=== PATIENT | male | born 1950 | race Caucasian/White ===

== ENCOUNTER 2022-03-12 12:34 | Outpatient (CLI) | payer OTHER, MEDICARE, SELFPAY | END 2022-03-12 12:35 | disposition home or self-care (01) | LOC: AMB 04-10 15:38 | PROVIDERS: Visit Provider Emergency Medicine Emergency Medical Services | DX: S01.91XA Laceration without foreign body of unspecified part of head, initial encounter (principal); S61.411A Laceration without foreign body of right hand, initial encounter; V48.0XXA Car driver injured in noncollision transport accident in nontraffic accident, initial encounter; Y92.411 Interstate highway as the place of occurrence of the external cause | CPT/HCPCS: A0425; A0429 ==